=== PATIENT | male | born 1960 | race African-American/Black ===

== ENCOUNTER 2017-11-11 19:40 | Emergency (ER) | payer OTHER ==
[2017-11-11 19:53] VITALS: TEMP 98.9; BMI 26.1
--- NOTE | 2017-11-11 19:55 | PDOC ---
Rapid Medical Evaluation Chief Complaint: Alcohol intoxication Time Seen by Provider: 11/11/17 19:51 Medical Evaluation: 11/11/17 19:52 c/o heroin withdrawal. patient is looking for detox. last time snorted heroin was at 8 am. Pmhx; asthma, stomach surgery PE: patient alert ox3. breath sounds clear I have ordered. :none Patient to the ED for further management of care.
[2017-11-11] MEDS ORDERED: ACETAMINOPHEN 325 MG TABLET (FP) PO ONE (22:04)
[2017-11-11] MEDS ORDERED: SODIUM CHLORIDE 1,000 ML IV STA (23:11)
[2017-11-11] MEDS ORDERED: METHADONE HCL 10 MG/1 ML (20ML VIAL) IM ONE (23:12)
--- NOTE | 2017-11-11 23:14 | PDOC ---
History of Present Illness - General Exam Limitations: No Limitations - History of Present Illness Initial Comments: 11/11/17 23:20 The patient is a 57 year old male, with no significant past medical history, who presents to the emergency department with, diffuse abdominal pain and multiple episodes of nausea with vomiting and diarrhea prior to arrival. Patient reports he has been having various stomach issues throughout the past couple years and has been self medicating with heroin. Patient reports using one bundle of heroin per day. However, he reports his last dosing of heroin was approx. 12 hours ago. He reports the diffuse abdominal pain as a cramping feeling and reports associated symptoms of nausea with vomiting and diarrhea throughout the day. Allergies: NKA <Gera Dodge - Last Filed: 11/12/17 00:21> - General History Source: Patient <Cristopher Martinez - Last Filed: 11/12/17 05:13> <Chaitanya Copeland - Last Filed: 11/12/17 10:20> - General Chief Complaint: Substance Abuse Stated Complaint: SHORTNESS OF BREATH Time Seen by Provider: 11/11/17 19:51 Past History <Gera Dodge - Last Filed: 11/12/17 00:21> - Past Medical History Asthma: Yes COPD: No - Suicide/Smoking/Psychosocial Hx Smoking History: Never smoked Hx Alcohol Use: No Drug/Substance Use Hx: Yes (heroin, marajuana) <Cristopher Martinez - Last Filed: 11/12/17 05:13> <Chaitanya Copeland - Last Filed: 11/12/17 10:20> - Past Medical History Allergies/Adverse Reactions: Allergies Allergy/AdvReac Type Severity Reaction Status Date / Time No Known Allergies Allergy Verified 11/11/17 23:35 Home Medications: Ambulatory Orders NK [No Known Home Medication] 11/12/17 Review of Systems - Review of Systems Comments:: 11/11/17 23:21 CONSTITUTIONAL: Absent: fever, no chills, no fatigue EYES: Absent: visual changes ENT: Absent: ear pain, no sore throat CARDIOVASCULAR: Absent: chest pain, no palpitations RESPIRATORY: Absent: cough, no SOB GI: Present: +Diffuse Abdominal pain. +Nausea. +Vomiting. +Diarrhea GENITOURINARY: Absent: dysuria, no frequency, no hematuria MUSKULOSKELETAL: Absent: back pain, no arthralgia, no myalgia SKIN: Absent: rash NEURO: Absent: headache <Gera Dodge - Last Filed: 11/12/17 00:21> *Physical Exam - Vital Signs Last Vital Signs Temp Pulse Resp BP Pulse Ox 98.9 F 71 20 160/72 99 11/11/17 19:51 11/11/17 19:51 11/11/17 19:51 11/11/17 19:51 11/11/17 19:51 - Physical Exam Comments: 11/11/17 23:34 GENERAL: +Moderate distress. HEENT: Normocephalic, atraumatic. PERRL, EOM intact. CARDIOVASCULAR: +Tachycardia. PULMONARY: Clear to auscultation bilaterally. ABDOMEN: +Hyperactive bowel sounds. Soft, non-distended, non-tender. EXTREMITIES: Normal ROM in all four extremities. No gross deformities. SKIN: Warm, dry. No rash NEUROLOGICAL: No focal neurological deficits. <Gera Dodge - Last Filed: 11/12/17 00:21> - Vital Signs Last Vital Signs Temp Pulse Resp BP Pulse Ox 98.9 F 71 20 160/72 99 11/11/17 19:51 11/11/17 19:51 11/11/17 19:51 11/11/17 19:51 11/11/17 19:51 <Cristopher Martinez - Last Filed: 11/12/17 05:13> - Vital Signs Last Vital Signs Temp Pulse Resp BP Pulse Ox 98.9 F 65 18 137/85 97 11/11/17 19:51 11/12/17 07:03 11/12/17 07:03 11/12/17 07:03 11/12/17 07:03 <Chaitanya Copeland - Last Filed: 11/12/17 10:20> Heart Score/ECG Review #1 11/12/17 00:21 Normal Sinus Rhythm at 60 bpm. QT/QTc 416/416 ms <Gera Dodge - Last Filed: 11/12/17 00:21> ED Treatment Course - LABORATORY CBC & Chemistry Diagram: 11/11/17 23:55 11/11/17 23:55 <Gera Dodge - Last Filed: 11/12/17 00:21> - LABORATORY CBC & Chemistry Diagram: 11/11/17 23:55 11/11/17 23:55 <Cristopher Martinez - Last Filed: 11/12/17 05:13> - LABORATORY CBC & Chemistry Diagram: 11/11/17 23:55 11/11/17 23:55 - ADDITIONAL ORDERS Additional order review: Laboratory Results 11/12/17 11/12/17 11/11/17 00:01 00:01 23:55 PT with INR INR Sodium Potassium Chloride Carbon Dioxide Anion Gap BUN Creatinine Creat Clearance w eGFR Random Glucose Calcium Magnesium Total Bilirubin AST ALT Alkaline Phosphatase Creatine Kinase Creatine Kinase Index CK-MB (CK-2) Troponin I Total Protein Albumin Lipase Urine Color Yellow Urine Appearance Clear Urine pH 7.0 Ur Specific [place] 1.023 Urine Protein 1+ H Urine Glucose (UA) Negative Urine Ketones 2+ H Urine Blood Negative Urine Nitrite Negative Urine Bilirubin Negative Urine Urobilinogen Negative Ur Leukocyte Esterase Negative Urine WBC (Auto) 1 Urine RBC (Auto) 4 Urine Mucus Rare Opiates Screen Positive Methadone Screen Negative Barbiturate Screen Negative Phencyclidine Screen Negative Ur Amphetamines Screen Negative MDMA (Ecstasy) Screen Negative Benzodiazepines Screen Negative Cocaine Screen Positive U Marijuana (THC) Screen Positive Alcohol, Quantitative < 5.0 11/11/17 11/11/17 23:55 23:55 PT with INR 12.80 H INR 1.13 Sodium 139 Potassium 3.7 Chloride 104 Carbon Dioxide 22 Anion Gap 13 BUN 12 Creatinine 1.3 Creat Clearance w eGFR 57.31 Random Glucose 100 Calcium 10.2 H Magnesium 2.1 Total Bilirubin 0.5 AST 28 ALT 29 Alkaline Phosphatase 84 Creatine Kinase 355 H Creatine Kinase Index 0.6 CK-MB (CK-2) 2.207 Troponin I < 0.02 Total Protein 8.4 H Albumin 4.6 Lipase 114 Urine Color Urine Appearance Urine pH Ur Specific [place] Urine Protein Urine Glucose (UA) Urine Ketones Urine Blood Urine Nitrite Urine Bilirubin Urine Urobilinogen Ur Leukocyte Esterase Urine WBC (Auto) Urine RBC (Auto) Urine Mucus Opiates Screen Methadone Screen Barbiturate Screen Phencyclidine Screen Ur Amphetamines Screen MDMA (Ecstasy) Screen Benzodiazepines Screen Cocaine Screen U Marijuana (THC) Screen Alcohol, Quantitative 11/11/17 23:55 RBC 5.17 MCV 72.3 L MCHC 31.8 L RDW 14.9 MPV 7.9 Neutrophils % 84.2 H Lymphocytes % 12.1 Monocytes % 3.6 L Eosinophils % 0.0 Basophils % 0.1 - Medications Given in the ED: ED Medications Discontinued Medications Generic Name Dose Route Start Last Admin Trade Name Chris PRJuana Reason Stop Dose Admin Acetaminophen 650 mg 11/11/17 22:04 11/11/17 22:06 Tylenol - PO 11/11/17 22:05 650 mg ONCE ONE Administration Sodium Chloride 1,000 mls @ 1,000 mls/hr 11/11/17 23:11 11/11/17 23:57 Normal Saline - IV 11/12/17 00:10 1,000 mls/hr ASDIR STA Administration Methadone HCl 30 mg 11/11/17 23:12 11/12/17 00:06 Dolophine Injection - IM 11/11/17 23:13 30 mg ONCE ONE Administration Methadone HCl 10 mg 11/11/17 23:38 11/11/17 23:58 Dolophine - PO 11/11/17 23:39 10 mg ONCE ONE Administration Metoclopramide HCl 10 mg 11/11/17 23:45 11/11/17 23:58 Reglan Injection - IVPUSH 11/11/17 23:46 10 mg ONCE ONE Administration <Chaitanya Copeland - Last Filed: 11/12/17 10:20> Medical Decision Making - Medical Decision Making 11/12/17 05:03 Dr. Martinez: The scribe's documentation has been prepared under my direction and personally reviewed by me in its entirery. I confirm that the note above accurately reflects all work, treatment, procedures, and medical decision making performed by me. Spoke to TAMARA Ventura. No bed is available at this time. Pt to be discharged to [facility] at 8-9am this morning. Will sign out case to morning attending Pt received a total of Methadone 40mg, 10mg PO, 30mg IM. Pt feels better and medically cleared. <Cristopher Martinez - Last Filed: 11/12/17 05:13> *DC/Admit/Observation/Transfer - Attestations Scribe Attestion: 11/11/17 23:22 Documentation prepared by Gera Dodge, acting as expert medical writer for Cristopher Martinez MD. <Gera Dodge - Last Filed: 11/12/17 00:21> <Cristopher Martinez - Last Filed: 11/12/17 05:13> <Chaitanya Copeland - Last Filed: 11/12/17 10:20> Diagnosis at time of Disposition: Heroin abuse - Discharge Dispostion Disposition: HOME Condition at time of disposition: Stable - Referrals Referrals: Timbo Claros MD [Primary Care Provider] - - Patient Instructions Printed Discharge Instructions: DI for Drug Abuse and Drug Addiction - Post Discharge Activity
[2017-11-11] MEDS ORDERED: METHADONE HCL 10 MG TABLET ONE (23:38)
[2017-11-11] MEDS ORDERED: METHADONE HCL 10 MG TABLET PO ONE (23:38)
[2017-11-11] MEDS ORDERED: METOCLOPRAMIDE HCL INJECTION 10 MG/2 ML VIAL ONE (23:38)
[2017-11-11] MEDS ORDERED: METOCLOPRAMIDE HCL INJECTION 10 MG/2 ML VIAL IVPUSH ONE (23:45)
[2017-11-12 00:12] LABS: BASO % 0.1 % (0-2.0); HEMATOCRIT 37.3 % (35.4-49); HEMOGLOBIN 11.9 GM/dL (11.7-16.9); LYMPH % 12.1 % (8-40); MCHC 31.8 g/dl (32.0-35.9); MEAN CELL VOLUME 72.3 fl (80-96); MEAN PLT VOLUME 7.9 fl (7.5-11.1); MONO % 3.6 % (3.8-10.2); NEUT % 84.2 % (42.8-82.8); PLATELET COUNT 237 K/MM3 (134-434); RBC 5.17 M/mm3 (4.00-5.60); RDW 14.9 % (11.9-15.9); WHITE BLOOD COUNT 8.8 K/mm3 (4.0-10.0)
[2017-11-12 00:25] LABS: URINE APPEARANCE CLEAR; URINE BILIRUBIN NEGATIVE (NEGATIVE); URINE BLOOD NEGATIVE (NEGATIVE); URINE COLOR YELLOW; URINE GLUCOSE (UA) NEGATIVE (NEGATIVE); URINE KETONE 2+ (NEGATIVE); URINE LEUK ESTERASE NEGATIVE (NEGATIVE); URINE NITRITE NEGATIVE (NEGATIVE); URINE UROBILINOGEN NEGATIVE mg/dL (0.2-1.0)
[2017-11-12 00:27] LABS: URINE PROTEIN 1+ (NEGATIVE)
[2017-11-12 00:29] LABS: URINE MUCUS RARE
[2017-11-12 00:30] LABS: INR 1.13 (0.82-1.09); PROTHROMBIN TIME (PATIENT) 12.8 SEC (9.98-11.88)
[2017-11-12 00:35] LABS: URINE AMPHETAMINES NEGATIVE ng/ml (CUTOFF=500); URINE BARBITURATES NEGATIVE ng/ml (CUTOFF=200); URINE BENZODIAZEPINES NEGATIVE ng/ml (CUTOFF=200)
[2017-11-12 00:36] LABS: METHADONE, UR NEGATIVE ng/ml (CUTOFF=300); PHENCYCLIDINE,URINE NEGATIVE ng/ml (CUTOFF=25)
[2017-11-12 00:37] LABS: COCAINE, UR POSITIVE ng/ml (CUTOFF=300); OPIATES, URI POSITIVE ng/ml (CUTOFF=300)
[2017-11-12 00:42] LABS: ALBUMIN 4.6 g/dl (3.4-5.0); ANION GAP 13 (8-16); BILIRUBIN,TOTAL 0.5 mg/dL (0.2-1.0); BLOOD UREA NITROGEN 12 mg/dL (7-18); CALCIUM 10.2 mg/dL (8.5-10.1); CHLORIDE 104 mmol/L (98-107); CO2 22 mmol/L (21-32); CREATININE 1.3 mg/dL (0.7-1.3); GLUCOSE,RANDOM 100 mg/dL (74-106); LIPASE 114 U/L (73-393); SGPT/ALT 29 U/L (12-78); SODIUM 139 mmol/L (136-145); TOT PROT 8.4 g/dl (6.4-8.2)
[2017-11-12 00:46] LABS: ALK PHOS 84 U/L (45-117); MAGNESIUM 2.1 mg/dL (1.8-2.4); POTASSIUM 3.7 mmol/L (3.5-5.1); SGOT/AST 28 U/L (15-37)
--- NOTE | 2017-11-12 09:37 | EKG ---
Test Reason : Blood Pressure : / mmHG Vent. Rate : 060 BPM Atrial Rate : 060 BPM P-R Int : 156 ms QRS Dur : 098 ms QT Int : 416 ms P-R-T Axes : 074 043 060 degrees QTc Int : 416 ms NORMAL SINUS RHYTHM NORMAL ECG NO PREVIOUS ECGS AVAILABLE Confirmed by SHAYNA RODRIGUEZ, MOE ([id number]) on 11/12/2017 9:37:02 AM Referred By: Confirmed By:MOE CORRAL MD
[2017-11-12] MEDS ORDERED: ONDANSETRON *ODT* 4 MG TABLET ONE (10:57)
[2017-11-12 11:12] VITALS: BP 130/62; PULSE 68
[2017-11-12] MEDS ORDERED: ONDANSETRON *ODT* 4 MG TABLET SL ONE (11:13)
== END 2017-11-12 11:14 | disposition home or self-care (01) ==
LOC: JER 19:40
PROC: 3E0337Z Introduction of Electrolytic and Water Balance Substance into Peripheral Vein, Percutaneous Approach (ICD-10-PCS; principal; 2017-11-11)
PROC: 3E033GC Introduction of Other Therapeutic Substance into Peripheral Vein, Percutaneous Approach (ICD-10-PCS; 2017-11-11)
PROC: 3E023NZ Introduction of Analgesics, Hypnotics, Sedatives into Muscle, Percutaneous Approach (ICD-10-PCS; 2017-11-11)
DX: F11.10 Opioid abuse, uncomplicated (principal)
CPT/HCPCS: 36415; 71045-TC; 80053; 80307; 81003; 81015; 82550; 82553; 83690; 83735; 84484; 85025; 85610; 93005; 93010; 96361; 96372; 96374; 99283-25

== ENCOUNTER 2017-11-12 11:48 | Inpatient (IN) | payer OTHER ==
[2017-11-12 12:40] VITALS: BMI 26.6
--- NOTE | 2017-11-12 15:44 | HP ---
COWS - Scale Resting Pulse: 0= HI 80 or Below Sweatin=Flushed/Facial Moisture Restless Observation: 1= Difficult to Sit Still Pupil Size: 1= Pupils >than Normal Bone or Joint Aches: 2= Severe Diffuse Aches Runny Nose/ Eye Tearin= Runny Nose/Eyes GI Upset > 30mins: 2= Nausea/Diarrhea Tremor Observation: 2= Slight Tremor Visible Yawning Observation: 1= 1-2x During Session Anxiety or Irritability: 2=Irritable/Anxious Goose Flesh Skin: 0=Smooth Skin COWS Score: 15 Admission ROS S - HPI Chief Complaint: "I want detox from Heroin, I am doing it for me and my children" Allergies/Adverse Reactions: Allergies Allergy/AdvReac Type Severity Reaction Status Date / Time No Known Allergies Allergy Verified 11/11/17 23:35 History of Present Illness: 57 y/o male here for detox from heroin. States started using 3 months ago, previous attempt at a facility in [place] for 7 days but left due "to family emergency". Endorses daily use of heroin and fentanyl. Last used 11/11/16; went to the ER pm yesterday because "I was withdrawing" from where he was sent here. Hx of Asthma Exam Limitations: No Limitations - Ebola screening Have you traveled outside of the country in the last 21 days: No (N) Have you had contact with anyone from an Ebola affected area: No Have you been sick,other than usual withdrawal symptoms: No Do you have a fever: No - Review of Systems Constitutional: Chills, Changes in sleep, Unintentional Wgt. Loss EENT: reports: Nose Congestion Respiratory: reports: No Symptoms reported Cardiac: reports: No Symptoms Reported GI: reports: Diarrhea, Nausea, Poor Appetite, Vomiting : reports: No Symptoms Reported Musculoskeletal: reports: Joint Pain, Neck Pain, Other (general body pain) Patient History - Patient Medical History Hx Anemia: No Hx Asthma: Yes (ventolin pump) Hx Chronic Obstructive Pulmonary Disease (COPD): No Hx Cancer: No Hx Cardiac Disorders: No Hx Congestive Heart Failure: No Hx Hypertension: No Hx Hypercholesterolemia: No Hx Pacemaker: No Hx Seizures: No Hx Diabetes: No Hx Gastrointestinal Disorders: Yes (abdominal pain S/P abdominal hernia repair) Hx Liver Disease: No Hx Genitourinary Disorders: No Hx Sexually Transmitted Disorders: No Hx Renal Disease (ESRD): No Hx Thyroid Disease: No Hx Human Immunodeficiency Virus (HIV): No Hx Hepatitis C: No Hx Depression: No Hx Suicide Attempt: No (Denies current or previous SI/HI) Hx Bipolar Disorder: No Hx Schizophrenia: No - Patient Surgical History Past Surgical History: Yes Hx Neurologic Surgery: No Hx Cataract Extraction: No Hx Cardiac Surgery: No Hx Lung Surgery: No Hx Breast Surgery: No Hx Breast Biopsy: No Hx Abdominal Surgery: Yes (abdominal hernia repair 2012) Hx Appendectomy: No Hx Cholecystectomy: No Hx Genitourinary Surgery: No Hx Section: No Hx Orthopedic Surgery: Yes (rotator cuff surgery 2011 left shoulder) Other Surgical History: head trauma with stitches a mnth ago., R eye cornea sx - 05/2017 Anesthesia Reaction: No - PPD History Previous Implant?: Yes Documented Results: Positive w/o proof Implanted On Prior R Admission?: No PPD to be Administered?: Yes - Reproductive History Patient is a Female of Child Bearing Age (11 -55 yrs old): No - Smoking Cessation Smoking history: Never smoked Hx Chewing Tobacco Use: No Initiated information on smoking cessation: No - Substance & Tx. History Hx Alcohol Use: No (Stopped 5 years ago) Hx Substance Use: Yes Substance Use Type: Heroin, Marijuana Hx Substance Use Treatment: Yes ( 2 months ago -[facility] for 7 days) - Substances Abused Heroin Route: Inhalation Frequency: Daily Amount used: 10bags Age of first use: 55 Date of Last Use: 11/11/17 Family Disease History - Family Disease History Family Disease History: Other: Mother (Asthma) Admission Physical Exam [facility] - Vital Signs Vital Signs: Vital Signs - 24 hr 11/12/17 12:38 Temperature 97.6 F Pulse Rate 80 Respiratory 18 Rate Blood Pressure 132/83 - Physical General Appearance: Yes: Moderate Distress, Tremorous, Anxious HEENTM: Yes: Within Normal Limits, Hearing grossly Normal Respiratory: Yes: Chest Non-Tender, Lungs Clear, Normal Breath Sounds Neck: Yes: No masses,lesions,Nodules Breast: Yes: Breast Exam Deferred Cardiology: Yes: Regular Rhythm, Regular Rate, S1, S2 Abdominal: Yes: Normal Bowel Sounds, Non Tender, Soft Genitourinary: Yes: Within Normal Limits Back: Yes: Normal Inspection Musculoskeletal: Yes: full range of Motion, Gait Steady, Back pain Extremities: Yes: Normal Capillary Refill, Normal Inspection Neurological: Yes: Fully Oriented, Alert Integumentary: Yes: Normal Color, Dry, Warm Lymphatic: Yes: Within Normal Limits - Diagnostic (1) Opioid dependence with withdrawal Current Visit: Yes Status: Acute Cleared for Admission [facility] - Detox or Rehab [facility] Level of Care: Medically Managed Detox Regimen/Protocol: Methadone [facility] Breath Alcohol Content Breath Alcohol Content: 0 Urine Drug Screen - Results Drug Screen Negative: No Urine Drug Screen Results: THC-Marijuana, KOFFI-Cocaine, OPI-Opiates, MTD- Methadone
[2017-11-12] MEDS ORDERED: MAGNESIUM CITRATE 300 ML BOTTLE PO PRN (16:01)
[2017-11-12] MEDS ORDERED: hydrOXYzine PAMOATE 50 MG CAPSULE (FP) PO PRN (16:01)
[2017-11-12] MEDS ORDERED: MENTHOL/PHENOL 1 EACH UD MM PRN (16:01)
[2017-11-12] MEDS ORDERED: IBUPROFEN 400 MG TABLET (FP) PO PRN (16:01)
[2017-11-12] MEDS ORDERED: ACETAMINOPHEN 325 MG TABLET (FP) PO PRN (16:01)
[2017-11-12] MEDS ORDERED: guaiFENesin/D-METHORPHAN HB 10 ML UNIT-DOSE CUPS PO PRN (16:01)
[2017-11-12] MEDS ORDERED: P-EPHED 60MG/TRIPROLIDI 2.5MG TABLET PO PRN (16:01)
[2017-11-12] MEDS ORDERED: LOPERAMIDE HCL 2 MG CAPSULE PO PRN (16:01)
[2017-11-12] MEDS ORDERED: MAG HYDROX/AL HYDROX/SIMETH 30 ML UNIT-DOSE CUP PO PRN (16:01)
[2017-11-12] MEDS ORDERED: MAGNESIUM HYDROX 2400MG/30ML ORAL SUSPENSION 30 ML CUP PO PRN (16:01)
[2017-11-12] MEDS ORDERED: ALBUTEROL SO4 18 GM HFA INHALER IH PRN (16:05)
[2017-11-12] MEDS ORDERED: METHADONE HCL 10 MG TABLET (FOR DETOX USE ONLY) PO ONE ×2 (17:45→23:00)
[2017-11-12] MEDS: diazePAM 5 MG TABLET PO PRN (18:01)
[2017-11-12] MEDS: THIAMINE HCL 100 MG TABLET (FP) PO SCH (22:20)
[2017-11-13 00:21] LABS: URINE APPEARANCE CLEAR; URINE BILIRUBIN NEGATIVE (NEGATIVE); URINE BLOOD NEGATIVE (NEGATIVE); URINE COLOR YELLOW; URINE GLUCOSE (UA) NEGATIVE (NEGATIVE); URINE KETONE TRACE (NEGATIVE); URINE LEUK ESTERASE NEGATIVE (NEGATIVE); URINE NITRITE NEGATIVE (NEGATIVE); URINE PROTEIN NEGATIVE (NEGATIVE); URINE UROBILINOGEN NEGATIVE mg/dL (0.2-1.0)
--- NOTE | 2017-11-13 09:12 | EKG ---
Test Reason : Blood Pressure : / mmHG Vent. Rate : 065 BPM Atrial Rate : 065 BPM P-R Int : 158 ms QRS Dur : 086 ms QT Int : 384 ms P-R-T Axes : 085 013 046 degrees QTc Int : 399 ms NORMAL SINUS RHYTHM NORMAL ECG WHEN COMPARED WITH ECG OF 12-NOV-2017 00:19, NO SIGNIFICANT CHANGE WAS FOUND Confirmed by MOE CORRAL MD ([id number]) on 11/13/2017 9:12:01 AM Referred By: Confirmed By:MOE CORRAL MD
[2017-11-13 09:57] LABS: HEMOGLOBIN 12.1 GM/dL (11.7-16.9); MCH 22.7 pg (25.7-33.7); MEAN CELL VOLUME 73.3 fl (80-96); MEAN PLT VOLUME 8.5 fl (7.5-11.1); PLATELET COUNT 242 K/MM3 (134-434); RBC 5.33 M/mm3 (4.00-5.60); RDW 15.5 % (11.9-15.9); WHITE BLOOD COUNT 12.3 K/mm3 (4.0-10.0)
[2017-11-13] MEDS ORDERED: METHADONE HCL 10 MG TABLET (FOR DETOX USE ONLY) PO ONE (10:00)
[2017-11-13 10:05] LABS: CHLORIDE 107 mmol/L (98-107); POTASSIUM 4.1 mmol/L (3.5-5.1); SODIUM 138 mmol/L (136-145)
[2017-11-13 10:23] LABS: ALBUMIN 4.2 g/dl (3.4-5.0); ALK PHOS 81 U/L (45-117); ANION GAP 6 (8-16); BILIRUBIN,TOTAL 0.6 mg/dL (0.2-1.0); BLOOD UREA NITROGEN 14 mg/dL (7-18); CO2 25 mmol/L (21-32); CREATININE 1.3 mg/dL (0.7-1.3); GLUCOSE,RANDOM 91 mg/dL (74-106); SGOT/AST 36 U/L (15-37); SGPT/ALT 36 U/L (12-78); TOT PROT 7.7 g/dl (6.4-8.2)
[2017-11-13] MEDS: diazePAM 5 MG TABLET PO PRN ×3 (10:53→22:13)
[2017-11-13] MEDS: PRENATAL VITAMINS W/ FOLIC ACID TABLET (FP) PO SCH (10:53)
--- NOTE | 2017-11-13 12:15 | PN ---
BHS COWS - Scale Resting Pulse: 0= SD 80 or Below Sweatin= Chills/Flushing Restless Observation: 3= Extraneous Movement Pupil Size: 0= Normal to Room Light Bone or Joint Aches: 4=Acute Joint/Muscle Pain Runny Nose/ Eye Tearin= Nasal Congestion GI Upset > 30mins: 1= Stomach Cramp Tremor Observation of Outstretched Hands: 2= Slight Tremor Visible Yawning Observation: 1= 1-2x During Session Anxiety or Irritability: 2=Irritable/Anxious Goose Flesh Skin: 0=Smooth Skin COWS Score: 15 BHS Progress Note (SOAP) Subjective: ANXIETY,SWEATS,DIARRHEA,TREMORS,BODY ACHES,INTERMITTENT SLEEP. Objective: 11/13/17 12:15 Vital Signs Temperature 97.5 F L 11/13/17 09:26 Pulse Rate 63 11/13/17 09:26 Respiratory Rate 18 11/13/17 09:26 Blood Pressure 140/87 11/13/17 09:26 O2 Sat by Pulse Oximetry (%) Laboratory Last Values WBC 12.3 K/mm3 (4.0-10.0) H D 11/13/17 06:00 RBC 5.33 M/mm3 (4.00-5.60) 11/13/17 06:00 Hgb 12.1 GM/dL (11.7-16.9) 11/13/17 06:00 Hct 39.0 % (35.4-49) 11/13/17 06:00 MCV 73.3 fl (80-96) L 11/13/17 06:00 MCH 22.7 pg (25.7-33.7) L 11/13/17 06:00 MCHC 31.0 g/dl (32.0-35.9) L 11/13/17 06:00 RDW 15.5 % (11.9-15.9) 11/13/17 06:00 Plt Count 242 K/MM3 (134-434) 11/13/17 06:00 MPV 8.5 fl (7.5-11.1) 11/13/17 06:00 Sodium 138 mmol/L (136-145) 11/13/17 06:00 Potassium 4.1 mmol/L (3.5-5.1) 11/13/17 06:00 Chloride 107 mmol/L (98-107) 11/13/17 06:00 Carbon Dioxide 25 mmol/L (21-32) 11/13/17 06:00 Anion Gap 6 (8-16) L 11/13/17 06:00 BUN 14 mg/dL (7-18) 11/13/17 06:00 Creatinine 1.3 mg/dL (0.7-1.3) 11/13/17 06:00 Creat Clearance w eGFR 57.31 (>60) 11/13/17 06:00 Random Glucose 91 mg/dL (74-106) 11/13/17 06:00 Calcium 9.0 mg/dL (8.5-10.1) 11/13/17 06:00 Total Bilirubin 0.6 mg/dL (0.2-1.0) 11/13/17 06:00 AST 36 U/L (15-37) D 11/13/17 06:00 ALT 36 U/L (12-78) D 11/13/17 06:00 Alkaline Phosphatase 81 U/L (45-117) 11/13/17 06:00 Total Protein 7.7 g/dl (6.4-8.2) 11/13/17 06:00 Albumin 4.2 g/dl (3.4-5.0) 11/13/17 06:00 Urine Color Yellow 11/12/17 20:42 Urine Appearance Clear 11/12/17 20:42 Urine pH 5.0 (5.0-8.0) D 11/12/17 20:42 Ur Specific [place] 1.017 (1.001-1.035) 11/12/17 20:42 Urine Protein Negative (NEGATIVE) 11/12/17 20:42 Urine Glucose (UA) Negative (NEGATIVE) 11/12/17 20:42 Urine Ketones Trace (NEGATIVE) H 11/12/17 20:42 Urine Blood Negative (NEGATIVE) 11/12/17 20:42 Urine Nitrite Negative (NEGATIVE) 11/12/17 20:42 Urine Bilirubin Negative (NEGATIVE) 11/12/17 20:42 Urine Urobilinogen Negative mg/dL (0.2-1.0) 11/12/17 20:42 Ur Leukocyte Esterase Negative (NEGATIVE) 11/12/17 20:42 Assessment: 11/13/17 12:15 WITHDRAWAL SX Plan: CONTINUE DETOX
--- NOTE | 2017-11-13 13:15 | CONSULT ---
[facility] Psychiatric Consult - Data Date of interview: 11/13/17 Admission source: [facility] Identifying data: Pt. is a 57 year old male, single, father of three, and on disability. This is patient's first [facility] to [facility]. Pt. admitted to for heroin dependence. Substance Abuse History: Heroin- First used: three months ago Frequency: daily Amount: 1 bundle Medical History: Asthma, Abdominal pain S/P hernia repair, Blind in right eye. Psychiatric History: Patient's first encounter with a psychiatrist was at [facility] in September of 2017 after reporting depression and requesting an evaluation by a psychiatrist. Pt. was discharged after seeing the psychiatrist and was not given a prescription for psychotrophic medications. Pt. denies h/o psychiatric hospitalization, suicide attempts and OPC. Physical/Sexual Abuse/Trauma History: Denies. Mental Status Exam - Mental Status Exam Alert and Oriented to: Time, Place, Person Cognitive Function: Good Patient Appearance: Well Groomed Mood: Hopeful Affect: Mood Congruent Patient Behavior: Appropriate, Cooperative Speech Pattern: Clear, Appropriate Voice Loudness: Normal Thought Process: Goal Oriented Thought Disorder: Not Present Hallucinations: Denies Suicidal Ideation: Denies Homicidal Ideation: Denies Insight/Judgement: Poor Sleep: Poorly Appetite: Fair Muscle strength/Tone: Normal Gait/Station: Normal Psychiatric Findings - Problem List ([place] 1, 2,3) (1) Opioid dependence with withdrawal Current Visit: Yes Status: Acute (2) Insomnia Current Visit: Yes Status: Acute (3) Substance induced mood disorder Current Visit: No Status: Suspected - Initial Treatment Plan Initial Treatment Plan: Psychoeducation provided. Detoxification in progress. Ambien 5mg qhs prn ordered. Benefits and side effects (sleep walking) discussed. Verbal consent given. Will continue monitor.
[2017-11-13] MEDS: THIAMINE HCL 100 MG TABLET (FP) PO SCH (22:12)
[2017-11-13] MEDS: ZOLPIDEM TARTRATE 5 MG TABLET PO PRN (22:12)
[2017-11-14] MEDS ORDERED: METHADONE HCL 5 MG TABLET (FOR DETOX USE ONLY) PO ONE (10:00)
[2017-11-14] MEDS: PRENATAL VITAMINS W/ FOLIC ACID TABLET (FP) PO SCH (10:17)
[2017-11-14] MEDS: diazePAM 5 MG TABLET PO PRN ×2 (10:17→22:15)
--- NOTE | 2017-11-14 11:45 | PN ---
BHS COWS - Scale Resting Pulse: 0= [place] 80 or Below Sweatin= Chills/Flushing Restless Observation: 3= Extraneous Movement Pupil Size: 2= Moderately Dilated Bone or Joint Aches: 4=Acute Joint/Muscle Pain Runny Nose/ Eye Tearin= Nasal Congestion GI Upset > 30mins: 1= Stomach Cramp Tremor Observation of Outstretched Hands: 2= Slight Tremor Visible Yawning Observation: 1= 1-2x During Session Anxiety or Irritability: 2=Irritable/Anxious Goose Flesh Skin: 0=Smooth Skin COWS Score: 17 BHS Progress Note (SOAP) Subjective: ANXIETY,SWEATS/CHILLS,INTERMITTENT SLEEP,FATIGUE. Objective: 11/14/17 11:44 Vital Signs Temperature 97.4 F L 11/14/17 10:10 Pulse Rate 70 11/14/17 10:10 Respiratory Rate 18 11/14/17 10:10 Blood Pressure 125/80 11/14/17 10:10 O2 Sat by Pulse Oximetry (%) Laboratory Last Values WBC 12.3 K/mm3 (4.0-10.0) H D 11/13/17 06:00 RBC 5.33 M/mm3 (4.00-5.60) 11/13/17 06:00 Hgb 12.1 GM/dL (11.7-16.9) 11/13/17 06:00 Hct 39.0 % (35.4-49) 11/13/17 06:00 MCV 73.3 fl (80-96) L 11/13/17 06:00 MCH 22.7 pg (25.7-33.7) L 11/13/17 06:00 MCHC 31.0 g/dl (32.0-35.9) L 11/13/17 06:00 RDW 15.5 % (11.9-15.9) 11/13/17 06:00 Plt Count 242 K/MM3 (134-434) 11/13/17 06:00 MPV 8.5 fl (7.5-11.1) 11/13/17 06:00 Sodium 138 mmol/L (136-145) 11/13/17 06:00 Potassium 4.1 mmol/L (3.5-5.1) 11/13/17 06:00 Chloride 107 mmol/L (98-107) 11/13/17 06:00 Carbon Dioxide 25 mmol/L (21-32) 11/13/17 06:00 Anion Gap 6 (8-16) L 11/13/17 06:00 BUN 14 mg/dL (7-18) 11/13/17 06:00 Creatinine 1.3 mg/dL (0.7-1.3) 11/13/17 06:00 Creat Clearance w eGFR 57.31 (>60) 11/13/17 06:00 Random Glucose 91 mg/dL (74-106) 11/13/17 06:00 Calcium 9.0 mg/dL (8.5-10.1) 11/13/17 06:00 Total Bilirubin 0.6 mg/dL (0.2-1.0) 11/13/17 06:00 AST 36 U/L (15-37) D 11/13/17 06:00 ALT 36 U/L (12-78) D 11/13/17 06:00 Alkaline Phosphatase 81 U/L (45-117) 11/13/17 06:00 Total Protein 7.7 g/dl (6.4-8.2) 11/13/17 06:00 Albumin 4.2 g/dl (3.4-5.0) 11/13/17 06:00 Urine Color Yellow 11/12/17 20:42 Urine Appearance Clear 11/12/17 20:42 Urine pH 5.0 (5.0-8.0) D 11/12/17 20:42 Ur Specific [place] 1.017 (1.001-1.035) 11/12/17 20:42 Urine Protein Negative (NEGATIVE) 11/12/17 20:42 Urine Glucose (UA) Negative (NEGATIVE) 11/12/17 20:42 Urine Ketones Trace (NEGATIVE) H 11/12/17 20:42 Urine Blood Negative (NEGATIVE) 11/12/17 20:42 Urine Nitrite Negative (NEGATIVE) 11/12/17 20:42 Urine Bilirubin Negative (NEGATIVE) 11/12/17 20:42 Urine Urobilinogen Negative mg/dL (0.2-1.0) 11/12/17 20:42 Ur Leukocyte Esterase Negative (NEGATIVE) 11/12/17 20:42 RPR Titer Nonreactive (NONREACTIVE) 11/13/17 06:00 Assessment: 11/14/17 11:44 WITHDRAWAL SX Plan: CONTINUE DETOX INCREASE PO FLUIDS
[2017-11-14] MEDS: THIAMINE HCL 100 MG TABLET (FP) PO SCH (22:14)
[2017-11-14] MEDS: ZOLPIDEM TARTRATE 5 MG TABLET PO PRN (22:14)
[2017-11-15] MEDS: diazePAM 5 MG TABLET PO PRN (09:14)
[2017-11-15] MEDS ORDERED: METHADONE HCL 5 MG TABLET (FOR DETOX USE ONLY) PO ONE (10:00)
[2017-11-15] MEDS: PRENATAL VITAMINS W/ FOLIC ACID TABLET (FP) PO SCH (10:56)
--- NOTE | 2017-11-15 12:09 | PN ---
BHS Progress Note (SOAP) Subjective: Sweats, chills and generalized body aches Objective: 11/15/17 12:06 Vital Signs - 8 hr 11/15/17 11/15/17 06:33 09:18 Temperature 97.6 F 97.1 F L Pulse Rate 77 73 Respiratory 18 16 Rate Blood Pressure 112/75 120/78 Laboratory Last Values WBC 12.3 K/mm3 (4.0-10.0) H D 11/13/17 06:00 RBC 5.33 M/mm3 (4.00-5.60) 11/13/17 06:00 Hgb 12.1 GM/dL (11.7-16.9) 11/13/17 06:00 Hct 39.0 % (35.4-49) 11/13/17 06:00 MCV 73.3 fl (80-96) L 11/13/17 06:00 MCH 22.7 pg (25.7-33.7) L 11/13/17 06:00 MCHC 31.0 g/dl (32.0-35.9) L 11/13/17 06:00 RDW 15.5 % (11.9-15.9) 11/13/17 06:00 Plt Count 242 K/MM3 (134-434) 11/13/17 06:00 MPV 8.5 fl (7.5-11.1) 11/13/17 06:00 Sodium 138 mmol/L (136-145) 11/13/17 06:00 Potassium 4.1 mmol/L (3.5-5.1) 11/13/17 06:00 Chloride 107 mmol/L (98-107) 11/13/17 06:00 Carbon Dioxide 25 mmol/L (21-32) 11/13/17 06:00 Anion Gap 6 (8-16) L 11/13/17 06:00 BUN 14 mg/dL (7-18) 11/13/17 06:00 Creatinine 1.3 mg/dL (0.7-1.3) 11/13/17 06:00 Creat Clearance w eGFR 57.31 (>60) 11/13/17 06:00 Random Glucose 91 mg/dL (74-106) 11/13/17 06:00 Calcium 9.0 mg/dL (8.5-10.1) 11/13/17 06:00 Total Bilirubin 0.6 mg/dL (0.2-1.0) 11/13/17 06:00 AST 36 U/L (15-37) D 11/13/17 06:00 ALT 36 U/L (12-78) D 11/13/17 06:00 Alkaline Phosphatase 81 U/L (45-117) 11/13/17 06:00 Total Protein 7.7 g/dl (6.4-8.2) 11/13/17 06:00 Albumin 4.2 g/dl (3.4-5.0) 11/13/17 06:00 Urine Color Yellow 11/12/17 20:42 Urine Appearance Clear 11/12/17 20:42 Urine pH 5.0 (5.0-8.0) D 11/12/17 20:42 Ur Specific [place] 1.017 (1.001-1.035) 11/12/17 20:42 Urine Protein Negative (NEGATIVE) 11/12/17 20:42 Urine Glucose (UA) Negative (NEGATIVE) 11/12/17 20:42 Urine Ketones Trace (NEGATIVE) H 11/12/17 20:42 Urine Blood Negative (NEGATIVE) 11/12/17 20:42 Urine Nitrite Negative (NEGATIVE) 11/12/17 20:42 Urine Bilirubin Negative (NEGATIVE) 11/12/17 20:42 Urine Urobilinogen Negative mg/dL (0.2-1.0) 11/12/17 20:42 Ur Leukocyte Esterase Negative (NEGATIVE) 11/12/17 20:42 RPR Titer Nonreactive (NONREACTIVE) 11/13/17 06:00 Labs noted, mild elevation in the white count Assessment: 11/15/17 12:07 Withdrawal sx Mild leukocytosis, no signs and symptoms of infection Plan: Continue detox Monitor for signs and symptoms of infection, repeat CBC if indicated
[2017-11-15] MEDS: ZOLPIDEM TARTRATE 5 MG TABLET PO PRN (22:43)
[2017-11-15] MEDS: THIAMINE HCL 100 MG TABLET (FP) PO SCH (22:43)
[2017-11-16] MEDS ORDERED: METHADONE HCL 10 MG TABLET (FOR DETOX USE ONLY) PO ONE (10:00)
[2017-11-16] MEDS: PRENATAL VITAMINS W/ FOLIC ACID TABLET (FP) PO SCH (10:39)
--- NOTE | 2017-11-16 16:30 | PN ---
[facility] Progress Note (SOAP) Subjective: Shakes nasal congestion Toothache Objective: 11/16/17 16:28 Vital Signs Temperature 96.9 F L 11/16/17 14:23 Pulse Rate 67 11/16/17 14:23 Respiratory Rate 18 11/16/17 14:23 Blood Pressure 142/84 11/16/17 14:23 O2 Sat by Pulse Oximetry (%) Assessment: 11/16/17 16:28 withdrawal symptoms Afebrile Plan: continue detox pain med prn for toothache for d/c tomorrow
[2017-11-16] MEDS: ZOLPIDEM TARTRATE 5 MG TABLET PO PRN (21:57)
[2017-11-16] MEDS: THIAMINE HCL 100 MG TABLET (FP) PO SCH (22:36)
[2017-11-17] MEDS ORDERED: METHADONE HCL 5 MG TABLET (FOR DETOX USE ONLY) PO ONE (06:00)
[2017-11-17 09:27] VITALS: BP 119/79; PULSE 77; TEMP 99.6
--- NOTE | 2017-11-17 14:47 | DS ---
[facility] Detox Discharge Summary Admission Date: 11/12/17 Discharge Date: 11/17/17 - History Present History: Opioid Dependence Additional Comments: DETOX COMPLETED. ALERT O X 3. NAD. Pertinent Past History: ASTHMA - Physical Exam Results Vital Signs: Vital Signs Temperature 99.6 F 11/17/17 09:26 Pulse Rate 77 11/17/17 09:26 Respiratory Rate 18 11/17/17 09:26 Blood Pressure 119/79 11/17/17 09:26 O2 Sat by Pulse Oximetry (%) Pertinent Admission Physical Exam Findings: WITHDRAWAL SX Laboratory Last Values WBC 12.3 K/mm3 (4.0-10.0) H D 11/13/17 06:00 RBC 5.33 M/mm3 (4.00-5.60) 11/13/17 06:00 Hgb 12.1 GM/dL (11.7-16.9) 11/13/17 06:00 Hct 39.0 % (35.4-49) 11/13/17 06:00 MCV 73.3 fl (80-96) L 11/13/17 06:00 MCH 22.7 pg (25.7-33.7) L 11/13/17 06:00 MCHC 31.0 g/dl (32.0-35.9) L 11/13/17 06:00 RDW 15.5 % (11.9-15.9) 11/13/17 06:00 Plt Count 242 K/MM3 (134-434) 11/13/17 06:00 MPV 8.5 fl (7.5-11.1) 11/13/17 06:00 Sodium 138 mmol/L (136-145) 11/13/17 06:00 Potassium 4.1 mmol/L (3.5-5.1) 11/13/17 06:00 Chloride 107 mmol/L (98-107) 11/13/17 06:00 Carbon Dioxide 25 mmol/L (21-32) 11/13/17 06:00 Anion Gap 6 (8-16) L 11/13/17 06:00 BUN 14 mg/dL (7-18) 11/13/17 06:00 Creatinine 1.3 mg/dL (0.7-1.3) 11/13/17 06:00 Creat Clearance w eGFR 57.31 (>60) 11/13/17 06:00 Random Glucose 91 mg/dL (74-106) 11/13/17 06:00 Calcium 9.0 mg/dL (8.5-10.1) 11/13/17 06:00 Total Bilirubin 0.6 mg/dL (0.2-1.0) 11/13/17 06:00 AST 36 U/L (15-37) D 11/13/17 06:00 ALT 36 U/L (12-78) D 11/13/17 06:00 Alkaline Phosphatase 81 U/L (45-117) 11/13/17 06:00 Total Protein 7.7 g/dl (6.4-8.2) 11/13/17 06:00 Albumin 4.2 g/dl (3.4-5.0) 11/13/17 06:00 Urine Color Yellow 11/12/17 20:42 Urine Appearance Clear 11/12/17 20:42 Urine pH 5.0 (5.0-8.0) D 11/12/17 20:42 Ur Specific [place] 1.017 (1.001-1.035) 11/12/17 20:42 Urine Protein Negative (NEGATIVE) 11/12/17 20:42 Urine Glucose (UA) Negative (NEGATIVE) 11/12/17 20:42 Urine Ketones Trace (NEGATIVE) H 11/12/17 20:42 Urine Blood Negative (NEGATIVE) 11/12/17 20:42 Urine Nitrite Negative (NEGATIVE) 11/12/17 20:42 Urine Bilirubin Negative (NEGATIVE) 11/12/17 20:42 Urine Urobilinogen Negative mg/dL (0.2-1.0) 11/12/17 20:42 Ur Leukocyte Esterase Negative (NEGATIVE) 11/12/17 20:42 RPR Titer Nonreactive (NONREACTIVE) 11/13/17 06:00 - Treatment Hospital Course: Detox Protocol Followed, Detoxed Safely, Responded well, Discharged Condition Good - Medication Discharge Medications: Ambulatory Orders Albuterol Sulfate Inhaler - [Ventolin Hfa Inhaler -] 1 - 2 inh PO QID PRN - Diagnosis (1) Opioid dependence with withdrawal Status: Acute (2) Asthma Status: Chronic Qualifiers: Asthma severity: mild Asthma persistence: intermittent Asthma complication type: uncomplicated Qualified Code(s): J45.20 - Mild intermittent asthma, uncomplicated - AMA Did Patient Leave Against Medical Advice: No
== END 2017-11-17 09:31 | disposition home or self-care (01) | DRG 897 ==
LOC: YASAS 11:48 → Y3N 16:16
PROVIDERS: ADMIT Internal Medicine; ATTEND Internal Medicine
PROC: HZ2ZZZZ Detoxification Services for Substance Abuse Treatment (ICD-10-PCS; principal; 2017-11-12)
DX: F11.23 Opioid dependence with withdrawal (principal); F19.24 Other psychoactive substance dependence with psychoactive substance-induced mood disorder; J45.20 Mild intermittent asthma, uncomplicated; D72.829 Elevated white blood cell count, unspecified; G47.00 Insomnia, unspecified
CPT/HCPCS: 36415; 80053; 81003; 85027; 86593; 93005; 93010